=== PATIENT | male | born 1950 | race Caucasian/White ===

== ENCOUNTER 2017-09-03 13:56 | Emergency (ER) | payer OTHER, SELFPAY ==
[2017-09-03 14:10] VITALS: BP 160/87; PULSE 87; RESP 20; TEMP 36.4; O2SAT 97
[2017-09-03 14:30] VITALS: BP 135/70; PULSE 64; O2SAT 100
--- NOTE | 2017-09-03 14:36 | ED.GENADULT ---
HPI - General Adult General Chief complaint: Diabetic Problem Stated complaint: HIGH BLOOD SUGAR Time Seen by Provider: 09/03/17 14:12 History of Present Illness HPI narrative: HPI 66-year-old male with DM II on Januvia 100 mg q.d. presents requesting medication refill. Denies chest pain, fevers, chills, cough, dysuria. Patient recently returned from the [facility] to seek care for prostate cancer through the [place]. Patient ran out of his medications 4 days ago. Patient presented today is blood glucose was 324. Patient's been noting a stepwise increase daily. ROS with no recent constitutional symptoms. Exam Gen: Pleasant, non-toxic appearing, resting comfortably HEENT: NC, AT, PEERL, EOMI. Resp: Clear to auscultation bilaterally. Unlabored respirations with a normal work of breathing. Card: Regular rate and rhythm. Extremities warm and well perfused. GI: Non-distended. : Deferred MSK: No visible deformities, strength and tone without visually appreciable deficit. Neuro: AO x 3, no facial asymmetry, vision and hearing WNL. Heme/Lymph: Deferred Skin: Normal color with no visible lesions (other than noted above). Psych: Mood and affect appropriate. MDM Previous chart, nursing note, and vitals reviewed. A: 66-year-old male with DM II on Januvia 100 mg q.d. presents requesting medication refill. DDx & Evaluation: history and exam without evidence of further complications. Limited prescription for Januvia provided. [facility]. Impression: medication refill (please reference below for remainder of encounter information) Related Data Allergies Allergy/AdvReac Type Severity Reaction Status Date / Time No Known Drug Allergies Allergy Verified 09/03/17 14:10 Exam Initial Vital Signs Initial Vital Signs: Vital Signs Temperature 97.5 F L 09/03/17 14:10 Pulse Rate 87 09/03/17 14:10 Respiratory Rate 20 09/03/17 14:10 Blood Pressure 160/87 H 09/03/17 14:10 Pulse Oximetry 97 09/03/17 14:10 Course Vital Signs - 8 hr 09/03/17 14:10 Temperature 97.5 F L Pulse Rate 87 Respiratory Rate 20 Blood Pressure 160/87 H Pulse Oximetry 97
[2017-09-03 15:11] VITALS: BP 136/76; PULSE 66; O2SAT 98
== END 2017-09-03 15:27 | disposition home or self-care (01) ==
PROVIDERS: Emergency Provider Emergency Medicine
DX: Z76.0 Encounter for issue of repeat prescription (principal)
CPT/HCPCS: 81003; 82962; 99283